=== PATIENT | male | born 1945 | race Caucasian/White ===

== ENCOUNTER 2021-08-10 02:57 | Inpatient (IN) ==
[2021-08-10] MEDS ORDERED: cefTRIAXone 1 gm/50 mL NS BAG 1 GM/50 ML BAG IV ONE (03:17)
[2021-08-10] MEDS ORDERED: Azithromycin 500 mg/250 ml NS 500 MG/250 ML BAG IVPB ONE (03:17)
[2021-08-10] MEDS ORDERED: Albuterol HFA INHALER 8 gm MDI INH ONE (03:17)
[2021-08-10 03:56] LABS: ABS Lymphocytes 0.6 10^3/ul (1.0-4.8); ABS Monocytes 0.4 10^3/ul (0-0.8); ABS Neutrophils 4.5 10^3/ul (1.5-7.7); Eosinophil % 0.5 %; Hematocrit 32 % (42-52); Hemoglobin 10.5 g/dL (14.0-18.0); Lymphocyte % 10.2 %; Mean Corpuscular HGB Conc 33 g/dL (31-36); Mean Corpuscular Hemoglobin 31 pg (27-31); Mean Corpuscular Volume 94 fL (80-94); Mean Platelet Volume 8.2 fL (7.4-10.4); Platelet Count 205 10^3/uL (150-450); Red Blood Count 3.38 10^6 /uL (4.18-5.48); Red Cell Distribution Width 15 % (10-15); White Blood Count 5.5 10^3/uL (3.5-10.8)
[2021-08-10 04:11] LABS: ALT 28 U/L (7-52); AST 31 U/L (13-39); Albumin 3.7 g/dL (3.2-5.2); Albumin/Globulin Ratio 0.9 (1-3); Alkaline Phosphatase 67 U/L (35-149); Blood Urea Nitrogen 9 mg/dL (6-24); Calcium 9.1 mg/dL (8.6-10.3); Chloride 85 mmol/L (101-111); Glucose 137 mg/dL (70-100); Potassium 3.6 mmol/L (3.5-5.0); Sodium 133 mmol/L (135-145); Total Protein 7.7 g/dL (6.4-8.9)
[2021-08-10 04:30] LABS: Troponin I 0.02 ng/mL (<0.03)
[2021-08-10 04:31] LABS: Anion Gap 5 mmol/L (2-11); CO2 Carbon Dioxide 43 mmol/L (22-32)
[2021-08-10 04:33] LABS: Rapid COVID-19 Molecular Undetected (Undetected)
[2021-08-10] MEDS ORDERED: Al Hydrox/Mg Hydrox/Simet LIQ 30 ML UDC PO PRN (05:50)
[2021-08-10] MEDS ORDERED: Furosemide 40 mg/4 ml IV VIAL IV SLOW PU ONE (06:05)
[2021-08-10] MEDS ORDERED: Potassium Chlor 20 meq TAB.ER PO ONE (06:48)
[2021-08-10] MEDS ORDERED: [UNRECOGNIZED DRUG - OTHER] INH SCH (09:00)
[2021-08-10 09:02] LABS: Influenza A Molecular Negative (Negative); Influenza B Molecular Negative (Negative)
[2021-08-10] MEDS: Cholecalciferol (VIT D3) 1,000 unit TAB PO SCH (09:02)
[2021-08-10] MEDS: Aspirin EC 81 mg TAB.EC (enteric coated) PO SCH (09:02)
[2021-08-10] MEDS: Enoxaparin 40 MG/0.4 ML SYR SUBCUT SCH (09:03)
[2021-08-10 09:06] LABS: % Iron Saturation 10 % (15-55); Iron 39 ug/dL (50-212); Total Iron Binding Capacity 410 mcg/dL (250-450); Transferrin 293 mg/dL (203-362); Unsaturated Iron Binding < 395 ug/dL
[2021-08-10 09:32] LABS: Folate > 20.00 ng/mL (5.90-24.80)
[2021-08-10 09:33] LABS: Vitamin B12 1035 pg/mL (180-914)
[2021-08-10] MEDS: Potassium Chlor 20 meq TAB.ER PO SCH (10:54)
[2021-08-10 11:16] LABS: Magnesium 1.7 mg/dL (1.9-2.7)
[2021-08-10] MEDS: Albuterol HFA INHALER 8 gm MDI INH PRN (12:28)
[2021-08-10] MEDS: oxyCODONE/Acetamin 5/325 mg TAB PO PRN (16:06)
[2021-08-10 16:10] LABS: Calcium 9.5 mg/dL (8.6-10.3); Potassium 4.6 mmol/L (3.5-5.0)
[2021-08-10] MEDS ORDERED: Iron Sucrose 200 MG in NS 0.9% 100 ml BAG 100 ML IVPB ONE (18:30)
[2021-08-11] MEDS ORDERED: Azithromycin 500 mg/250 ml NS 500 MG/250 ML BAG IVPB SCH (06:00)
[2021-08-11] MEDS: Azithromycin 500 mg/250 ml NS 500 MG/250 ML BAG IVPB SCH (07:31)
[2021-08-11] MEDS: oxyCODONE/Acetamin 5/325 mg TAB PO PRN ×3 (07:32→20:27)
[2021-08-11] MEDS: SPIRIVA Respimat (tiotropium) 2.5 mcg/inh Inhaler INH SCH (07:36)
[2021-08-11] MEDS: Mometasone/Formoter 100/5 MDI INH SCH ×2 (07:37→19:10)
[2021-08-11] MEDS: Cholecalciferol (VIT D3) 1,000 unit TAB PO SCH (09:17)
[2021-08-11] MEDS: Potassium Chlor 20 meq TAB.ER PO SCH (09:18)
[2021-08-11] MEDS: Aspirin EC 81 mg TAB.EC (enteric coated) PO SCH (09:18)
[2021-08-11] MEDS: Enoxaparin 40 MG/0.4 ML SYR SUBCUT SCH (09:20)
[2021-08-11 09:51] LABS: Hematocrit 33 % (42-52); Hemoglobin 11.1 g/dL (14.0-18.0); Mean Corpuscular HGB Conc 33 g/dL (31-36); Mean Corpuscular Hemoglobin 32 pg (27-31); Mean Corpuscular Volume 95 fL (80-94); Mean Platelet Volume 8.1 fL (7.4-10.4); Platelet Count 241 10^3/uL (150-450); Red Blood Count 3.49 10^6 /uL (4.18-5.48); Red Cell Distribution Width 15 % (10-15); White Blood Count 5.5 10^3/uL (3.5-10.8)
[2021-08-11 10:10] LABS: Calcium 9.4 mg/dL (8.6-10.3); Magnesium 2.1 mg/dL (1.9-2.7); Potassium 3.7 mmol/L (3.5-5.0)
[2021-08-11] MEDS ORDERED: Iron Sucrose 200 MG in NS 0.9% 100 ml BAG 100 ML IVPB ONE (14:22)
[2021-08-11] MEDS: Albuterol HFA INHALER 8 gm MDI INH PRN ×2 (14:34→19:16)
[2021-08-12] MEDS: Azithromycin 500 mg/250 ml NS 500 MG/250 ML BAG IVPB SCH (05:06)
[2021-08-12 05:36] LABS: Hematocrit 32 % (42-52); Hemoglobin 10.8 g/dL (14.0-18.0); Mean Corpuscular HGB Conc 34 g/dL (31-36); Mean Corpuscular Hemoglobin 32 pg (27-31); Mean Corpuscular Volume 94 fL (80-94); Mean Platelet Volume 8.4 fL (7.4-10.4); Platelet Count 227 10^3/uL (150-450); Red Blood Count 3.41 10^6 /uL (4.18-5.48); Red Cell Distribution Width 15 % (10-15); White Blood Count 5.3 10^3/uL (3.5-10.8)
[2021-08-12 05:53] LABS: Calcium 9.3 mg/dL (8.6-10.3); Magnesium 2.2 mg/dL (1.9-2.7); Potassium 4.3 mmol/L (3.5-5.0)
[2021-08-12] MEDS: SPIRIVA Respimat (tiotropium) 2.5 mcg/inh Inhaler INH SCH (07:36)
[2021-08-12] MEDS: Mometasone/Formoter 100/5 MDI INH SCH (07:40)
[2021-08-12] MEDS: oxyCODONE/Acetamin 5/325 mg TAB PO PRN ×2 (07:52→15:17)
[2021-08-12] MEDS ORDERED: Iron Sucrose 200 MG in NS 0.9% 100 ml BAG 100 ML IVPB ONE (09:00)
[2021-08-12] MEDS: Aspirin EC 81 mg TAB.EC (enteric coated) PO SCH (10:18)
[2021-08-12] MEDS: Cholecalciferol (VIT D3) 1,000 unit TAB PO SCH (10:20)
[2021-08-12] MEDS: Potassium Chlor 20 meq TAB.ER PO SCH (10:21)
[2021-08-12] MEDS: Enoxaparin 40 MG/0.4 ML SYR SUBCUT SCH (10:23)
[2021-08-12 16:25] VITALS: BP 121/53
== END 2021-08-12 17:00 | disposition home or self-care (01) | DRG 191 ==
LOC: ED 02:57 → EDHOLD 05:45 → SUATTDRO 05:45 → MED 14:35
PROVIDERS: ADMIT Hospitalist; ATTEND Internal Medicine